=== PATIENT | female | born 1945 | race Two or more races ===

== ENCOUNTER 2024-09-07 15:13 | Emergency (ER) | payer OTHER ==
[~2024-09-07] VITALS: Ht 165.1 cm; Wt 70.3 kg
[2024-09-07] MEDS ORDERED: PROAIR RESPICL90 MCG IH (16:41)
[2024-09-07] MEDS ORDERED: IPRATROPIU0.2 MG/1 M IH (16:41)
[2024-09-07] MEDS ORDERED: MICARDIS HCT 41 EACH PO (16:42)
[2024-09-07] MEDS ORDERED: SYMBICORT 16010.2 GM IH (16:42)
[2024-09-07] MEDS ORDERED: SYNTHROID88 MCG PO (16:43)
[2024-09-07] MEDS ORDERED: CRESTOR40 MG (16:43)
[2024-09-07] MEDS ORDERED: LEVALBUTEROL HCL 1.25 MG/3 ML SOLUTION IH SCH (17:45)
[2024-09-07] MEDS ORDERED: KETOROLAC TROMETHAMINE 60 MG VIAL IM ONE ×2 (19:24→19:30)
[2024-09-07] MEDS ORDERED: DEXAMETHASONE SODIUM PHOSPHATE 4 MG/ML VIAL ONE (19:24)
[2024-09-07] MEDS ORDERED: DEXAMETHASONE SODIUM PHOSPHATE 4 MG/ML VIAL IM ONE (19:30)
[2024-09-07] MEDS ORDERED: MELOXICAM5 MG PO (20:34)
== END 2024-09-07 21:12 | disposition home or self-care (01) ==
LOC: ER 18:13
DX: M25.551 Pain in right hip (principal); I10 Essential (primary) hypertension; E03.8 Other specified hypothyroidism; Z91.013 Allergy to seafood
CPT/HCPCS: 73502; 96372; 99283; J1100; J1885